=== PATIENT | female | born 1970 | race Caucasian/White ===

== ENCOUNTER 2016-08-27 11:38 | Inpatient (IN) | payer OTHER ==
[~2016-08-27] VITALS: Ht 165.1 cm; Wt 93.4 kg
[2016-08-27 14:10] VITALS: BP 116/77
--- NOTE | 2016-08-27 14:10 | NUR ---
MS RN NOTES DIRECT ADMIT: PATIENT FOR CLINICAL TRIAL PER DR. ERNST. DX: SCHIZOPHRENIA. AAO X 4, ON ROOM AIR, NOT IN ANY DISTRESS. DENIES ANY PAIN AT THIS TIME. NO IV ACCESS. AMBULATORY, NO SKIN ISSUES. REFUSE BODY CHECK AND BELONGINGS CHECK. UNIT ORIENTATION DONE AND USE OF CALL LIGHT. BED LOW LOCKED. SR UP X 2, INSTRUCTED TO CALL FOR ASSISTANCE. ADMITTING ORDERS CARRIED OUT. VS TAKEN, STABLE. WILL CONTINUE TO MONITOR.
[2016-08-27] MEDS ORDERED: IBUPROFEN 200 MG TABLET PO PRN (15:30)
[2016-08-27] MEDS ORDERED: LORAZEPAM 1 MG TABLET FOR INSOMNIA PO PRN (15:30)
[2016-08-27] MEDS ORDERED: MAG HYDROX/AL HYDROX/SIMETH 30 ML UDC PO PRN (15:30)
[2016-08-27] MEDS ORDERED: MAGNESIUM HYDROXIDE 30 ML UDC PO PRN (15:30)
[2016-08-27] MEDS ORDERED: LORAZEPAM 1 MG TABLET FOR AGITATION PO PRN (15:30)
[2016-08-27] MEDS ORDERED: ACETAMINOPHEN ES 500 MG TABLET PO PRN (15:30)
[2016-08-27 16:00] VITALS: BP 116/77
--- NOTE | 2016-08-27 16:33 | NUR ---
MS/RN Belongings Informed by GOLF CART ATTENDANT that patient refusing to have personal belongings checked. Explained to patient that it is hospital policy for all belongings to be recorded upon admission, but still refusing. Further explained that if continues to refuse and anything goes missing, the hospital would not be responsible and therefore would not replace any such item. Patient stated understanding. -patient has two suitcases and jewelry
[2016-08-27 18:00] VITALS: BP 116/77
--- NOTE | 2016-08-27 18:57 | NUR ---
MS RN NOTES PT RESTING IN BED, AAO X 4, ON ROOM AIR, NOT IN ANY DISTRESS. DENIES ANY PAIN AT THIS TIME. NO IV ACCESS. AMBULATORY, NO SKIN ISSUES. CALL LIGHT WITHIN REACH. BED LOW LOCKED. SR UP X 2, INSTRUCTED TO CALL FOR ASSISTANCE. VSS. SAFETY MEASURES IN PLACE. WILL ENDORSE TO NEXT SHIFT FOR FERCHO.
--- NOTE | 2016-08-27 19:20 | NUR ---
RN NOTES RECEIVED PT ASLEEP, BREATHING REGULAR AND UNLABORED, NO SOB, NOT IN DISTRESS TOLERATING ROOM AIR. NO IV ACCESS NOTED. KEPT BED IN THE LOWEST POSITION, LOCKED, SIDE RAILS X2 UP WITH CALL LIGHT WITH IN REACH. KEPT COMFORTABLE AND ATTENDED. WILL CONTINUE TO MONITOR PT.
[2016-08-27 22:00] VITALS: BP 118/72
[2016-08-27] MEDS ORDERED: OLANZAPINE 5 MG TABLET PO SCH (22:00)
[2016-08-27] MEDS: OLANZAPINE 5 MG TABLET PO SCH (22:28)
--- NOTE | 2016-08-27 22:28 | NUR ---
RN NOTES PT AWAKE, ALERT AND ORIENTED X4, DENIES ANY PAIN AND DISCOMFORT AT THIS TIME. DUE MED GIVEN AND TOLERATED WELL. WILL CONTINUE TO MONITOR PT.
--- NOTE | 2016-08-28 06:58 | NUR ---
RN NOTES PT ASLEEP IN BED, NO SOB, NOT IN DISTRESS, TOLERATING ROOM AIR. VITAL SIGNS STABLE, NO EPISODE OF NAUSEA AND VOMITING. PT CALM, QUIET AND COOPERATIVE WITH CARE. NO UNTOWARD REACTION TO MEDICATION NOTED. WILL ENDORSE TO MORNING RN FOR CONTINUITY OF CARE.
--- NOTE | 2016-08-28 07:30 | NUR ---
MS RN AM NOTES PT ASLEEP, AROUSES TO NAME AND TOUCH, AAO X 4, ON ROOM AIR, NOT IN ANY DISTRESS. DENIES ANY PAIN AT THIS TIME. NO IV ACCESS. AMBULATORY, NO SKIN ISSUES. CALL LIGHT WITHIN REACH. BED LOW LOCKED. SR UP X 2, INSTRUCTED TO CALL FOR ASSISTANCE. VSAFETY MEASURES IN PLACE. WILL CONTINUE TO MONITOR.
[2016-08-28 08:00] VITALS: BP 114/76
[2016-08-28] MEDS: ATENOLOL 25 MG TABLET PO SCH (08:09)
[2016-08-28 08:48] VITALS: BP 114/76
--- NOTE | 2016-08-28 09:30 | NUR ---
MS RN NOTES ADMINISTERED DUE MEDS. COOPERATIVE AND CALM.
[2016-08-28 16:00] VITALS: BP 120/77
[2016-08-28 16:46] VITALS: BP 120/77
[2016-08-28 18:00] VITALS: BP 120/77
--- NOTE | 2016-08-28 18:37 | NUR ---
MS RN NOTES PT RESTING IN BED, AAO X 4, ON ROOM AIR, NOT IN ANY DISTRESS. DENIES ANY PAIN AT THIS TIME. NO IV ACCESS. AMBULATORY, NO SKIN ISSUES. CALL LIGHT WITHIN REACH. BED LOW LOCKED. SR UP X 2, INSTRUCTED TO CALL FOR ASSISTANCE. VSS. SAFETY MEASURES IN PLACE. ALL NEEDS MET. WILL ENDORSE TO NEXT SHIFT FOR FERCHO. PT SEEN BY DR. ERNST EARLIER. NO NEW ORDERS.
--- NOTE | 2016-08-28 19:00 | NUR ---
MS CUMMINS OPENING NOTES RECEIVED PATIENT IN BED IN STABLE CONDITION, NO S/S OF DISTRESS, IV SITE INTACT WITH S/S OF INFILTRATION. NO S/S OF DISTRESS NO SOB, NO CHEST PAIN. NO COMPLAINS OF PAIN, SAFE FREE ENVIRONMENT PROVIDED FREE OF CLUTTERS, WILL CONTINUE TO MONITOR, ON LOW BED TO ENSURE SAFETY, CALL LIGHT WITHIN REACH. Addendum: 08/28/16 at 1999 by MIAH ESTRADA RN ADDENDUM: WRONG ENTRY THIS FOR THE DIFFERENT PATIENT
--- NOTE | 2016-08-28 19:00 | NUR ---
MS RN OPENING NOTES RECEIVED PATIENT IN BED IN STABLE CONDITION, HEAD OF BED ELEVATED FOR BETTER LUNG EXPANSION. NO S/S OF DISTRESS NO SOB, NO CHEST PAIN. NO COMPLAINS OF PAIN, SAFE FREE ENVIRONMENT PROVIDED FREE OF CLUTTERS, WILL CONTINUE TO MONITOR, ON LOW BED TO ENSURE SAFETY, CALL LIGHT WITHIN REACH.
[2016-08-28 20:00] VITALS: BP 128/66
[2016-08-28] MEDS: OLANZAPINE 5 MG TABLET PO SCH (21:22)
--- NOTE | 2016-08-29 06:56 | NUR ---
MS RN CLOSING NOTES PATIENT COMFORTABLY IN BED ASLEEP AND EASILY AWAKEN, DUE MEDS WAS GIVEN. PATIENT IN STABLE CONDITION WITH NO SOB NO S/S OF DISTRESS NO NAUSEA AND VOMITING NO HEADACHE NO PAIN, NO COMPLAIN OF CHEST PAIN. NO UNUSUAL BEHAVIOR NOTED NO ADVERSE REACTION OR PSYCH INSTABILITY NOTED. NO EPISODES OF AKATHISIA OR TREMORS NOTED, NO S/S EPS NOTED. NO S/S OF HYPO/HYPERGLYCEMIA NOTED. ALERT AND VERBALLY RESPONSIVE X 4 DENIES PAIN OR DISTRESS, RESPONDS APPROPRIATELY TO VERBAL STIMULI, RESPIRATIONS EVEN UNLABORED BREATH SOUNDS. VS STABLE, APICAL PULSE REGULAR; GOOD SKIN CARE PROVIDED. SAFETY ENVIRONMENT PROVIDED. FREE OF CLUTTERS, NEEDS ATTENDED AND ANTICIPATED, NURSING CARE RENDERED, KEPT CLEAN AND DRY AND COMFORTABLE. CALL LIGHT IN REACH, BED LOWERED AND LOCKED, SR X2 FOR SAFETY AND WILL ENDORSE CONTINUE PLAN OF CARE TO THE NEXT SHIFT
--- NOTE | 2016-08-29 07:15 | NUR ---
MS RN NOTE: RECEIVED PATIENT WHILE RESTING IN BED, A/OX 4. PATIENT BREATHING EVEN AND UNLABORED ON ROOM AIR. NO SOB. NO DISTRESS/DISCOMFORT. PATIENT IS CALM AND COOPERATIVE, NO ABNORMAL BEHAVIOR AT THIS TIME. ALL NEEDS ATTENDED TO, SAFETY MEASURES IN PLACE, WILL CONTINUE TO MONITOR.
[2016-08-29 08:00] VITALS: BP 117/67
--- NOTE | 2016-08-29 08:00 | NUR ---
MS RN NOTE: PATIENT ATE ONLY ABOUT 50% OF BREAKFAST, NO COMPLICATIONS NOTED, WILL CONTINUE TO MONITOR.
[2016-08-29] MEDS: ATENOLOL 25 MG TABLET PO SCH (08:24)
--- NOTE | 2016-08-29 10:00 | NUR ---
MS RN NOTE: PATIENT SLEEPING AT THIS TIME. NO ABNORMAL BEHAVIOR NOTED, WILL CONTINUE TO MONITOR.
--- NOTE | 2016-08-29 13:10 | NUR ---
PATIENT TAKEN TO DR. ERNST'S OFFICE WITH CLINICAL WORKER. PATIENT AMBULATORY, NO COMPLICATIONS NOTED, WILL CONTINUE TO MONITOR UPON RETURN.
--- NOTE | 2016-08-29 14:28 | NUR ---
PATIENT HAS RETURNED BACK FROM DR. ERNST'S OFFICE. NO COMPLICATIONS NOTED, WILL CONTINUE TO MONITOR.
[2016-08-29 16:00] VITALS: BP 129/89
--- NOTE | 2016-08-29 17:50 | NUR ---
MS RN NOTE: PATIENT REQUESTING TO SHOWER, ASSISTED TO SHOWER ROOM, INDEPENDENT WITH CARE. PATIENT REMAINS CALM AND COOPERATIVE. WILL CONTINUE TO MONITOR.
--- NOTE | 2016-08-29 18:43 | NUR ---
MS RN NOTE: PATIENT RESTING IN BED, A/OX 4. BREATHING EVEN AND UNLABORED. NO SOB, NO COMPLICATIONS NOTED. PATIENT CALM, COOPERATIVE, NO ABNORMAL BEHAVIOR NOTED. PT. SLEPT THRU MOST OF DAY. ALL NEEDS ATTENDED TO, SAFETY MEASURES IN PLACE, WILL ENDORSE TO BLOCK CAPTAIN FOR FERCHO.
--- NOTE | 2016-08-29 19:45 | NUR ---
MS RN NOTE: PATIENT RESTING IN BED, NO ACUTE DISTRESS NOTED. BREATHING EVEN AND UNLABORED, NO SOB NOTED. PATIENT CALM AND COOPERATIVE, NO ABNORMAL BEHAVIOR NOTED. BED LOCKED AND IN LOWEST POSITION, CALL LIGHT IN REACH. WILL CONTINUE TO MONITOR.
[2016-08-29 20:18] VITALS: BP 118/75
[2016-08-29] MEDS: OLANZAPINE 5 MG TABLET PO SCH (21:47)
--- NOTE | 2016-08-30 03:00 | NUR ---
MS RN NOTE: PATIENT SLEEPING IN BED, NO ACUTE DISTRESS NOTED. BREATHING EVEN AND UNLABORED, NO SOB NOTED. BED LOCKED AND IN LOWEST POSITION, CALL LIGHT IN REACH. WILL CONTINUE TO MONITOR.
--- NOTE | 2016-08-30 05:34 | NUR ---
MS CUMMINS OPENING NOTES: PATIENT IN BED, AOX4, ON ROOM AIR, BREATHING EVEN AND UNLABORED. BREATH SOUNDS CLEAR TO AUSCULTATION. PATIENT APPEARS CALM, IN NO DISTRESS. DENIES ANY PAIN OR DISCOMFORT. ONLY ASKED FOR CRACKERS. NO IV ACCESS. PROVIDED FOR COMFORT AND SAFETY. WILL CONT TO MONITOR BEHAVIOR. Addendum: 08/31/16 at 0536 by WILLIAM HUERTA RN PLEASE DISREGARD. WRONG TIME OF DOCUMENTATION
--- NOTE | 2016-08-30 06:25 | NUR ---
MS RN NOTE: PATIENT RESTING IN BED, NO ACUTE DISTRESS NOTED. BREATHING EVEN AND UNLABORED, NO SOB NOTED. PATIENT CALM AND COOPERATIVE, NO ABNORMAL BEHAVIOR THROUGHOUT SHIFT. BED LOCKED AND IN LOWEST POSITION, CALL LIGHT IN REACH. WILL ENDORSE TO DAY NURSE TO CONTINUE WITH PLAN OF CARE.
[2016-08-30 08:00] VITALS: BP 142/81
--- NOTE | 2016-08-30 08:00 | NUR ---
MS RN AM NOTES PATIENT RESTING IN BED, A/OX 4. BREATHING EVEN AND UNLABORED. NO SOB, NO COMPLICATIONS NOTED. PATIENT CALM, COOPERATIVE, NO ABNORMAL BEHAVIOR NOTED. PT. SLEPT THRU MOST OF DAY OCCASIONALLY SMOKES OUTSIDE THE BUILDING ACCOMPANIED BY CHANGE MANAGER.DENIES PAIN OR DISTRESS.CALL LIGHT WITHIN REACH.
[2016-08-30] MEDS: ATENOLOL 25 MG TABLET PO SCH (08:47)
[2016-08-30 16:00] VITALS: BP 120/75
[2016-08-30 16:13] VITALS: BP 120/75
--- NOTE | 2016-08-30 19:30 | NUR ---
MS RN OPENING NOTES: PATIENT IN BED, AOX4, ON ROOM AIR, BREATHING EVEN AND UNLABORED. BREATH SOUNDS CLEAR TO AUSCULTATION. PATIENT APPEARS CALM, IN NO DISTRESS. DENIES ANY PAIN OR DISCOMFORT. ONLY ASKED FOR CRACKERS. NO IV ACCESS. PROVIDED FOR COMFORT AND SAFETY. WILL CONT TO MONITOR BEHAVIOR.
--- NOTE | 2016-08-30 19:47 | NUR ---
MS/RN CLOSING NOTES PT. IS LYING IN BED, A&OX4. PT. BREATHES EVENLY UNLABORED, NO SIGNS OF DISTRESS. PT. AMBULATES WITHOUT ASSISTANCE. PT. IS CONTINENT. CALL LIGHT IS WITHIN REACH, AND NEEDS ARE ATTENDED TO. PT. HAD A CIGARETTE AND MATCHES TAKEN AWAY FROM HER ROOM AT 1200.
[2016-08-30 20:14] VITALS: BP 129/80
[2016-08-30] MEDS: OLANZAPINE 5 MG TABLET PO SCH (21:55)
[2016-08-30 22:00] VITALS: BP 129/80
--- NOTE | 2016-08-31 00:30 | NUR ---
RN NOTES: PATIENT ASLEEP AT THIS TIME, BUT EASILY AWAKENED BY NAME BEING CALLED. CALM AND IN NO DISTRESS. WILL CONT TO MONITOR.
--- NOTE | 2016-08-31 07:30 | NUR ---
MS RN CLOSING NOTES: PATIENT IN BED, ASLEEP AT THIS TIME. DUE MEDS GIVEN. PROVIDED FOR COMFORT AND SAFETY. NO ACUTE CHANGE IN CONDITION NOTED THROUGH SHIFT. ENDORSED TO AM RN FOR FERCHO.
[2016-08-31 08:00] VITALS: BP 126/81
[2016-08-31] MEDS: ATENOLOL 25 MG TABLET PO SCH (08:54)
--- NOTE | 2016-08-31 09:30 | NUR ---
MS RN NOTES ADMINISTERED DUE MEDS.
[2016-08-31 16:00] VITALS: BP 123/79
[2016-08-31 18:00] VITALS: BP 123/79
--- NOTE | 2016-08-31 19:20 | NUR ---
MS RN OPENING NOTES: PATIENT IN BED, ASLEEP AT THIS TIME, BUT ABLE TO BE AWAKENED BY NAME BEING CALLED. AOX4, APPEARS WITHDRAWN AT THIS TIME. ABLE TO MAKE NEEDS KNOWN. APPEARS CALM AND IN NO DISTRESS. BREATHING EVEN AND UNLABORED. GOES BACK TO SLEEP AFTER TALKING TO HER. PROVIDED FOR COMFORT AND SAFETY. WILL CONT TO MONITOR.
[2016-08-31 20:08] VITALS: BP 123/82
[2016-08-31 22:00] VITALS: BP 123/82
[2016-08-31] MEDS: OLANZAPINE 5 MG TABLET PO SCH (22:23)
--- NOTE | 2016-08-31 22:30 | NUR ---
RN NOTES: PATIENT AWAKE, BUT STILL APPEARS WITHDRAWN. IN NO DISTRESS. DENIES PAIN OR DISCOMFORT. OFFERED LIGHT SNACK. WILL CONT TO MONITOR.
--- NOTE | 2016-09-01 07:01 | NUR ---
MS RN CLOSING NOTES: PATIENT IN BED, ASLEEP BUT EASILY AWAKENED BY NAME BEING CALLED. BREATHING EVEN AND UNLABORED. APPEARS CALM AND IN NO APPARENT DISTRESS. PROVIDED FOR COMFORT AND SAFETY. WILL CONT TO MONITOR.
[2016-09-01 08:00] VITALS: BP 125/80
[2016-09-01] MEDS: ATENOLOL 25 MG TABLET PO SCH (08:35)
--- NOTE | 2016-09-01 09:30 | NUR ---
MS RN NOTES ADMINISTERED DUE MEDS.
[2016-09-01 16:00] VITALS: BP 130/76
[2016-09-01 18:00] VITALS: BP 130/76
--- NOTE | 2016-09-01 18:26 | NUR ---
MS RN NOTES PT RESTING IN BED, AAO X 4, ON ROOM AIR, NOT IN ANY DISTRESS. DENIES ANY PAIN AT THIS TIME. NO IV ACCESS. AMBULATORY, NO SKIN ISSUES. CALL LIGHT WITHIN REACH. BED LOW LOCKED. SR UP X 2, INSTRUCTED TO CALL FOR ASSISTANCE. VSS. SAFETY MEASURES IN PLACE. ALL NEEDS MET. WILL ENDORSE TO NEXT SHIFT FOR FERCHO.
--- NOTE | 2016-09-01 19:50 | NUR ---
PATIENT RESTING COMFORTABLY IN BED, ALERT AND ORIENTED X 4, NO DISTRESS, NO SOB, ON ROOM AIR, ABLE TO VERBALIZE NEEDS, KEPT SAFE AND COMFORTABLE, CALL LIGHT WITHIN REACH.
[2016-09-01 20:00] VITALS: BP 110/80
--- NOTE | 2016-09-02 01:35 | NUR ---
PATIENT ASLEEP, NO COMPLAIN OF ANXIETY, NO TREMORS, NO HALLUCINATIONS. WILL CONTINUE TO MONITOR.
--- NOTE | 2016-09-02 06:30 | NUR ---
PATIENT RESTING COMFORTABLY IN BED, NO DISTRESS, ABLE TO SLEEP THROUGH THE NIGHT, NO BEHAVIOR DISTURBANCE, NO TREMORS, NO AKATHISIA NOTED. COMPLIANT WITH CARE. KEPT SAFE AND COMFORTABLE, CALL LIGHT WITHIN REACH
--- NOTE | 2016-09-02 07:58 | NUR ---
MS/RN Patient received Patient received from rn night, no needs at this time. Will continue to monitor.
[2016-09-02 08:00] VITALS: BP 121/82
[2016-09-02] MEDS: ATENOLOL 25 MG TABLET PO SCH (08:21)
--- NOTE | 2016-09-02 08:55 | NUR ---
MS/train gateman Morning blood pressure medication administered as ordered. BP - 121/82 HR - 87
--- NOTE | 2016-09-02 10:45 | NUR ---
MS/RN Activities Patient of floor at this time, taken to GPS for activities.
--- NOTE | 2016-09-02 12:35 | NUR ---
MS/RN Back in room Patiwent back in room from [facility], eating lunch.
[2016-09-02 16:00] VITALS: BP 142/89
--- NOTE | 2016-09-02 18:00 | NUR ---
MS/RN End note Seen by Dr Mcadams - no new orders, plan is to continue with current clinical study orders. Has remained calm and cooperative throughout the shift. No behavior concerns. Will endorse to date night caregiver.
--- NOTE | 2016-09-02 19:30 | NUR ---
MS RN NOTE PATIENT STABLE. FOLLOWING PROTOCOL STUDY ORDERS. WILL CONTINUE TO MONITOR.
[2016-09-02 20:00] VITALS: BP 139/88
[2016-09-02 22:00] VITALS: BP 139/88
--- NOTE | 2016-09-03 06:39 | NUR ---
MS RN NOTE PATIENT STABLE. WILL ENDORSE TO DAY SHIFT FOR FERCHO.
--- NOTE | 2016-09-03 07:30 | NUR ---
MS/RN Patient received Patient received from scene shifter. No needs at this time. Updated as to plan regarding starting trial medications and blood test, patient in agreement with all of the above.
[2016-09-03 07:33] VITALS: BP 113/84
[2016-09-03 08:09] VITALS: BP 113/84
[2016-09-03] MEDS: ATENOLOL 25 MG TABLET PO SCH (08:19)
--- NOTE | 2016-09-03 08:24 | NUR ---
MS/water maintenance supervisor Morning blood pressure medication administered as ordered. - BP 113/84
--- NOTE | 2016-09-03 12:41 | NUR ---
MS/RN Behavior Patient has remained calm and cooperative this morning, no behavior concerns. Admits to having some auditory hallucinations.
[2016-09-03 15:54] VITALS: BP 136/86
[2016-09-03 16:18] VITALS: BP 136/86
--- NOTE | 2016-09-03 18:28 | NUR ---
MS/RN End note Patient noted to be pacing in hallway and having auditory hullucinations, talking loudly to herself. Has not required any prn medications. Will continue to monitor.
[2016-09-03 19:00] VITALS: BP 143/98
--- NOTE | 2016-09-03 19:35 | NUR ---
MS RN NOTES RECEIVED ON BED AWAKE,ALERT,ORIENTED X4,AMBULATORY NO IV ACCESS.CALM AND QUIET,ABLE TO MAKE NEEDS KNOWN.CALL LIGHT IN REACH,NEEDS ANTICIPATED.
[2016-09-03 20:00] VITALS: BP 143/78
--- NOTE | 2016-09-03 20:00 | NUR ---
MS RN NOTES WENT DOWN TO SMOKE ACCOMPANIED BY PETER GA.REMAINS CALM
--- NOTE | 2016-09-04 07:27 | NUR ---
MS RN NOTES SLEPT WELL AT NOC.NO AGITATION NOTED.WILL CONTINUE TO MONITOR BEHAVIOR.REPORT GIVEN TO WALT FOR FERCHO.
--- NOTE | 2016-09-04 07:45 | NUR ---
RN NOTES RECEIVED PT IN BED. SLEEPING BUT EASY TO AROUSE. IN NO APPARENT DISTRESS. RESPIRATIONS EVEN AND UNLABORED. NO BEHAVIOR DISPLAYED AT THIS TIME. PT NPO UNTIL BLOOD DRAWN ( PER PROTOCOL). WILL CONTINUE TO MONITOR. PT'S CALL LIGHT WITHIN REACH
[2016-09-04 08:00] VITALS: BP 108/70
[2016-09-04 08:09] VITALS: BP 108/70
--- NOTE | 2016-09-04 08:20 | NUR ---
RN NOTES PT WENT TO DR ERNST'S CLINIC,. ACCOMPANIED BY 'S STAFF MEMBER FOR ORDERED LAB DRAW. WILL AWAIT RETURN
--- NOTE | 2016-09-04 11:30 | NUR ---
RN NOTES PT BACK FROM DR ERNST'S CLINIC- IN NO APPARENT DISTRESS. WILL CONTINUE TO MONITOR
[2016-09-04] MEDS: ATENOLOL 25 MG TABLET PO SCH (11:54)
[2016-09-04] MEDS ORDERED: LORAZEPAM 1 MG TABLET FOR AGITATION PO PRN (14:00)
[2016-09-04] MEDS ORDERED: LORAZEPAM 1 MG TABLET FOR INSOMNIA PO PRN (14:00)
[2016-09-04 17:00] VITALS: BP 112/66
--- NOTE | 2016-09-04 18:01 | NUR ---
RN NOTES PT IN BED. AWAKE, ALERT, ORIENTED X 3. IN NO APPARENT DISTRESS. PT WITH NO OBSERVED BEHAVIOR THIS SHIFT. WENT FOR SMOKE BREAKS WITH STAFF MEMBER X 3 TOTAL FOR THIS SHIFT. NO COMPLAINTS OF PAIN OR DISCOMFORT. WILL ENDORSE TO ONCOMING SHIFT
--- NOTE | 2016-09-04 19:25 | NUR ---
MS RN NOTES RECEIVED PT IN BED, A/0X4. ABLE TO VERBALIZE NEEDS. NO DISTRESS, NO SOB NOTED. RESPIRATION IS EVEN AND UNLABORED. ON REGULAR DIET LUKASZ WELL. PT IS AMBULATORY. NO C/O PAIN OR DISCOMFORT AT THIS TIME. ALL NEEDS ATTENDED AND MET. KEPT COMFORTABLE. CALL LIGHT WITHIN REACH. WILL CONT TO MONITOR.
[2016-09-04 20:00] VITALS: BP 111/71
--- NOTE | 2016-09-04 20:00 | NUR ---
MS RN NOTES PT WENT OUTSIDE TO SMOKE, ACCOMPANIED BY PETER FUNK. PT STABLE AT THIS TIME.
--- NOTE | 2016-09-04 20:30 | NUR ---
PT CAME BACK FROM OUTSIDE , ACCOMPANIED BY PETER FUNK. PT IS STABLE AT THIS TIME. CONSENT FOR SMOKING INSIDE THE PT'S CHART.
[2016-09-04 22:00] VITALS: BP 111/71
--- NOTE | 2016-09-05 01:30 | NUR ---
MS RN NOTES PT ASLEEP AT THIS TIME, AROUSES EASILY . NO DISTRESS, NO SOB NOTED. CALL LIGHT WITHIN REACH. WILL CONT TO MONITOR.
--- NOTE | 2016-09-05 06:44 | NUR ---
MS RN NOTES PT RESTING AT THIS TIME. AROUSES EASILY. NO ACUTE DISTRESS, NO SOB NOTED AT THIS TIME. RESPIRATION IS EVEN AND UNLABORED. NO C/O PAIN OR DISCOMFORT AT THIS TIME. ALL NEEDS ATTENDED AND MET . KEPT COMFORTABLE. CALL LIGHT WITHIN REACH. WILL ENDORSE TO NEXT SHIFT FOR FERCHO.
--- NOTE | 2016-09-05 07:28 | NUR ---
MS CUMMINS NOTES # OF HOURS : 7 Addendum: 09/06/16 at 0754 by THALIA HUYNH RN # HOURS OF SLEEP : 7
--- NOTE | 2016-09-05 07:30 | NUR ---
MS/RN Patient received Patient received from night club manager. No needs at this time, call light within reach, will continue to ensure safety.
[2016-09-05 08:00] VITALS: BP 121/76
[2016-09-05] MEDS: INVEST MED MK-8189 MISC 1 TAB EA PO SCH (08:02)
[2016-09-05] MEDS: INVEST MED MK-8189 MISC 1 CAP EA PO SCH (08:02)
[2016-09-05] MEDS: ATENOLOL 25 MG TABLET PO SCH (08:02)
--- NOTE | 2016-09-05 08:06 | NUR ---
MS/RN Medications Investigational medication administered as ordered along with atenlol.
--- NOTE | 2016-09-05 10:30 | NUR ---
MS CUMMINS NOTES PT WENT OUTSIDE TO SMOKE, ACCOMPANIED BY PETER HAUSER. PT STABLE AT THIS TIME. Addendum: 09/06/16 at 0555 by THALIA HUYNH RN INCORRECT TIME DOCUMENTED
--- NOTE | 2016-09-05 10:57 | NUR ---
MS/predictive maintenance technician Patient refused skin assessment.
[2016-09-05 16:00] VITALS: BP 142/80
--- NOTE | 2016-09-05 18:11 | NUR ---
MS/RN End note Patient continues to be having auditory and visual hallucinations, remains with very little social interaction although cooperative with treatment. Call light within reach, will continue to ensure safety and endorse to trade embalmer.
--- NOTE | 2016-09-05 19:20 | NUR ---
MS RN NOTES RECEIVED PT SITTING UP IN BED, A/0X4. ABLE TO VERBALIZE NEEDS. NO DISTRESS, NO SOB NOTED. RESPIRATION IS EVEN AND UNLABORED. ON REGULAR DIET LUKASZ WELL. PT IS AMBULATORY. NO C/O PAIN OR DISCOMFORT AT THIS TIME. ALL NEEDS ATTENDED AND MET. KEPT COMFORTABLE. CALL LIGHT WITHIN REACH. WILL CONT TO MONITOR.
[2016-09-05 20:00] VITALS: BP 127/84
[2016-09-05 22:00] VITALS: BP 127/84
--- NOTE | 2016-09-05 22:30 | NUR ---
MS RN NOTES PT WENT OUTSIDE TO SMOKE, ACCOMPANIED BY CONTINUOUS IMPROVEMENT BLACK BELT IMMACULATE. PT STABLE AT THIS TIME.
--- NOTE | 2016-09-05 22:35 | NUR ---
PT CAME BACK FROM OUTSIDE , ACCOMPANIED BY ANALISA, PETER. PT IS STABLE AT THIS TIME. CONSENT FOR SMOKING INSIDE THE PT'S CHART.
--- NOTE | 2016-09-06 07:44 | NUR ---
MS RN NOTES PT RESTING AT THIS TIME, AROUSES EASILY. A/0X4. ABLE TO VERBALIZE NEEDS. NO DISTRESS, NO SOB NOTED. RESPIRATION IS EVEN AND UNLABORED. ON REGULAR DIET LUKASZ WELL. PT IS AMBULATORY. NO C/O PAIN OR DISCOMFORT AT THIS TIME. ALL NEEDS ATTENDED AND MET. KEPT COMFORTABLE. CALL LIGHT WITHIN REACH. WILL ENDORSE TO NEXT SHIFT FOR FERCHO.
--- NOTE | 2016-09-06 07:48 | NUR ---
MS Henry Gee NOTES HOURS OF SLEEP : 5
[2016-09-06 08:00] VITALS: BP 122/92
--- NOTE | 2016-09-06 08:00 | NUR ---
MS/RN Patient received Patient received from awake overnight counselor. No needs at this time, call light within reach, will continue to ensure safety.
[2016-09-06] MEDS: ATENOLOL 25 MG TABLET PO SCH (08:29)
[2016-09-06] MEDS: INVEST MED MK-8189 MISC 1 CAP EA PO SCH (08:30)
[2016-09-06] MEDS: INVEST MED MK-8189 MISC 1 TAB EA PO SCH (08:30)
--- NOTE | 2016-09-06 09:15 | NUR ---
MS/RN Medications Blood pressure and investigational medications administered as ordered.
[2016-09-06 16:00] VITALS: BP 112/79
--- NOTE | 2016-09-06 18:12 | NUR ---
MS/RN End note No problems throughout shift, has been cooperative with plan of care. All investigational medications administered as ordered. Will endorse to mine shifter.
--- NOTE | 2016-09-06 19:30 | NUR ---
MS RN OPENING NOTES: PATIENT SITTING ON BED, AOX4, ON ROOM AIR, BREATHING EVEN AND UNLABORED. APPEARS CALM AND IN NO DISTRESS. ABLE TO MAKE NEEDS KNOWN. PATIENT ONLY ASKING FOR BROADBAND ENGINEER TO ACCOMPANY HER FOR SMOKING BREAK. REASSURED PATIENT. PROVIDED FOR COMFORT AND SAFETY. WILL CONT TO MONITOR.
[2016-09-06 20:00] VITALS: BP 122/75
[2016-09-06 22:00] VITALS: BP 122/75
--- NOTE | 2016-09-07 07:04 | NUR ---
MS RN CLOSING NOTES: PATIENT IN BED, ASLEEP BUT EASILY AWAKENED BY NAME BEING CALLED. ON ROOM AIR, BREATHING EVEN AND UNLABORED. NO ACUTE CHANGE IN CONDITION AND BEHAVIOR NOTED THROUGH SHIFT, WAS CALM AND IN NO DISTRESS. WAS ABLE TO HAVE 8 HOURS OF SLEEP. PROVIDED FOR COMFORT AND SAFETY. WILL ENDORSE TO AM RN FOR FERCHO.
--- NOTE | 2016-09-07 07:10 | NUR ---
MS RN NOTES RECEIVED PATIENT IN BED SLEEPING, AROUSES EASILY. BREATHING EVEN AND NON LABORED. CALL LIGHT WITHIN REACH. PATIENT IN ON CLINICAL TRIAL STUDY UNDER DR. ERNST. WILL CONT TO MONITOR.
[2016-09-07 08:00] VITALS: BP 132/91
[2016-09-07] MEDS: ATENOLOL 25 MG TABLET PO SCH (08:22)
[2016-09-07] MEDS: INVEST MED MK-8189 MISC 2 CAP EA PO SCH (08:23)
[2016-09-07] MEDS: INVEST MED MK-8189 MISC 2 TAB EA PO SCH (08:23)
[2016-09-07 16:00] VITALS: BP 112/90
[2016-09-07 16:15] VITALS: BP 112/90
--- NOTE | 2016-09-07 18:33 | NUR ---
MS RN CLOSING NOTES PATIENT IN BED, NOT IN DISTRESS. V/S REMAINS STABLE. PATIENT IS AMBULATORY, APPEAR CALM AND RELAXED. NO EPISODE OF AGITATION BEHAVIOR DURING THE SHIFT. ON CLINICAL TRIAL STUDY. CALL LIGHT WITHIN REACH. WILL ENDORSE TO UROLOGY SURGEON RN FOR CONTINUITY OF CARE.
--- NOTE | 2016-09-07 19:56 | NUR ---
MS RN INITIAL NOTES: RECEIVED REPORT FROM AGUEDA CUMMINS. PT A/O X3, AMBULATORY, DENIES ANY PAIN OR DISCOMFORT AT THIS TIME, ON ROOM AIR RESPIRATION EVEN AND UNLABORED. NO IV PER MD. PT ON CLINICAL TRIAL, OKAY TO SMOKE, SMOKING CONSENT ATTACHED TO CHART. SAFETY PRECAUTIONS FOR FALL INITIATED CALL LIGHT IN REACH, WILL CONTINUE TO MONITOR
[2016-09-07 20:00] VITALS: BP 125/78
--- NOTE | 2016-09-07 20:30 | NUR ---
RN NOTES: PT REQUESTED TO GO DOWN TO SMOKE, SMOKING CONSENT ATTACHED TO CHART, EDUCATE PT REGARDING RISK OF SMOKING, ADVICE TO SMOKING CESSATION, WENT DOWN ASSISTED BY PETER ANDRADE
--- NOTE | 2016-09-07 21:15 | NUR ---
ms rn notes: pt stated she has no plan of hurting herself, pt seems pleasant, however really make sure that she can smoke, directional, and have good appetite
--- NOTE | 2016-09-08 07:05 | NUR ---
ms rn closing notes: pt on bed, awake, remains a/o x3, no sob noted, denies any plan of hurting herself, remains calm and cooperative. hours of sleep is 5hrs. vs remains stable, needs attended. safety precautions for fall remains engaged. call light in reach. will endorse to day rn for aimee.
--- NOTE | 2016-09-08 07:10 | NUR ---
MS RN OPENING RECEIVED PATIENT A/OX4 DENIES PAIN, SOB DIFFICULTY BREATHING. PATIENT APPEARS COMFORTABLE AND STATES NO NEEDS. RESPIRATIONS EQUAL AND UNLABORED. CALL LIGHT IN REACH, BED LOWERED AND LOCKED, RAILS UPX2 FOR SAFETY AND WILL ROUND Q2H OR LESS PER NEEDS
[2016-09-08 08:00] VITALS: BP 129/77
[2016-09-08] MEDS: INVEST MED MK-8189 MISC 2 CAP EA PO SCH (09:06)
[2016-09-08] MEDS: INVEST MED MK-8189 MISC 2 TAB EA PO SCH (09:06)
[2016-09-08] MEDS: ATENOLOL 25 MG TABLET PO SCH (09:08)
[2016-09-08 16:00] VITALS: BP 114/72
[2016-09-08 20:00] VITALS: BP 127/83
[2016-09-08 20:09] VITALS: BP 127/83
--- NOTE | 2016-09-09 07:10 | NUR ---
MS RN CLOSING PT STABLE NO COMPLICATIONS. PLEASANT THROUGHOUT DAY AND NIGHT. PATIENT ABLE TO SLEEP 8 HOURS. ALL NEEDS MET AND CALL LIGHT IN REACH, BED LOWERED AND LOCKED, RAILS UPX3 FOR SAFETY. CARE ENDORSED TO RN AT THIS TIME
[2016-09-09 08:00] VITALS: BP 125/72
[2016-09-09] MEDS: INVEST MED MK-8189 MISC 2 CAP EA PO SCH (08:47)
[2016-09-09] MEDS: ATENOLOL 25 MG TABLET PO SCH (08:48)
[2016-09-09] MEDS: INVEST MED MK-8189 MISC 2 TAB EA PO SCH (08:48)
--- NOTE | 2016-09-09 09:10 | NUR ---
MS/RN Medications Morning medications administered as ordered.
[2016-09-09 16:00] VITALS: BP 129/70
--- NOTE | 2016-09-09 18:45 | NUR ---
MS/RN End note No changes in plan of care. Has been calm and cooperative today, no behavior concerns. Will endorse to shift coordinator.
--- NOTE | 2016-09-09 19:30 | NUR ---
MSRN FULLY AWAKE, WANTED TO GO OUT AND SMOKE. WILLING TO WAIT. BEHAVIOR APPROPRIATE, COOPERATIVE. NO NEEDS AT THIS TIME, PATIENTLY WAITING.
[2016-09-09 20:00] VITALS: BP 125/83
--- NOTE | 2016-09-09 20:45 | NUR ---
MSRN WENT DOWN FOR SMOKE ACCPD BY REHAB MANAGER. SAFETY PRECAUTIONS EMPHASIZED, APPEARS TO UNDERSTAND. TO CONTINUE.
--- NOTE | 2016-09-09 21:30 | NUR ---
FER GOES IN AND OUT OF HER ROOM, BECOMING ANXIOUS, REQUESTED MEDICINE FOR SLEEP. MEDICATION LIST REVIEWED WITH PATIENT, PREFERS TO TAKE ATIVAN FOR INCREASING ANXIETY. 1MG PO ADMINISTERED ORDERED.
--- NOTE | 2016-09-09 22:30 | NUR ---
MSRN WENT DOWN FOR SMOKE WITH MATH TUTOR, STATED WILL BE LAST.
--- NOTE | 2016-09-09 22:58 | NUR ---
MSRN TRYING TO SLEEP, PROVIDED QUIET ENVIRONMENT. CLOSELY WATCHED.
--- NOTE | 2016-09-09 23:59 | NUR ---
FER SLEEPING AT THIS TIME, CLOSELY WATCHED
--- NOTE | 2016-09-10 06:52 | NUR ---
MSRN TOTAL HRS SLEEP 7 HOURS
[2016-09-10 08:00] VITALS: BP 130/93
[2016-09-10] MEDS: INVEST MED MK-8189 MISC 3 TAB EA PO SCH (08:37)
[2016-09-10] MEDS: INVEST MED MK-8189 MISC 3 CAP EA PO SCH (08:37)
[2016-09-10] MEDS: ATENOLOL 25 MG TABLET PO SCH (08:38)
[2016-09-10 16:00] VITALS: BP 116/72
--- NOTE | 2016-09-10 18:24 | NUR ---
MS RN NOTES PATIENT IN BED RESTING NO SOB OR ACUTE DISTRESS NOTED. PATIENT COMPLAINT WITH MEDICATIONS. HOURS OF SLEEP NOTED IS 4. PATIENT REQUESTING FOR SMOKE BREAKS OFTEN. WILL ENDORSE CARE TO PM RN.
--- NOTE | 2016-09-10 19:40 | NUR ---
MSRN SEEN BY DOCTOR ERNST, NO NEW ORDERS. PATIENT HAS BEEN COOPERATIVE, CALM. LESS AUDITORY HALLUCINATION. ALL NEEDS MADE, CLOSELY WATCHED.
[2016-09-10 20:00] VITALS: BP 125/77
--- NOTE | 2016-09-10 20:45 | NUR ---
MSRN WENT DOWN FOR SMOKE ASSISTED BY AIR BOATSWAIN. SAFETY PRECAUTIONS EMPHASIZED, APPEARS TO UNDERSTND.
--- NOTE | 2016-09-10 22:40 | NUR ---
MSRN SLEEPING OF THIS TIME.
--- NOTE | 2016-09-11 02:59 | NUR ---
MSRN SLEEPING STILL CONTINUED.
--- NOTE | 2016-09-11 06:18 | NUR ---
msrn total hrs sleep 7hrs
--- NOTE | 2016-09-11 07:30 | NUR ---
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 No needs at this time, will continue to monitor and ensure safety.
[2016-09-11 08:00] VITALS: BP 128/84
--- NOTE | 2016-09-11 08:50 | NUR ---
MS/RN Interview Patient currently being interviewed by Dr Powell staff about medication, side effects etc.
[2016-09-11] MEDS: INVEST MED MK-8189 MISC 3 CAP EA PO SCH (08:59)
[2016-09-11] MEDS: INVEST MED MK-8189 MISC 3 TAB EA PO SCH (08:59)
[2016-09-11] MEDS: ATENOLOL 25 MG TABLET PO SCH (09:00)
--- NOTE | 2016-09-11 09:00 | NUR ---
MS/RN Medications Investigational medications administered as ordered.
--- NOTE | 2016-09-11 12:39 | NUR ---
MS/RN Behavior No behavioral concerns, remains calm and cooperative. Will continue to monitor.
[2016-09-11] MEDS ORDERED: LORAZEPAM 1 MG TABLET FOR INSOMNIA PO PRN (14:00)
[2016-09-11] MEDS ORDERED: LORAZEPAM 1 MG TABLET FOR AGITATION PO PRN (14:00)
[2016-09-11 16:00] VITALS: BP 115/80
--- NOTE | 2016-09-11 18:30 | NUR ---
MS/RN End note No changes in patient's condition at this time, remains calm and cooperative. Admits to some visual and auditory hallucinations. Will endorse to shift supervisor rn.
--- NOTE | 2016-09-11 19:50 | NUR ---
MS RN NOTE: PATIENT RESTING IN BED, NO ACUTE DISTRESS NOTED. BREATHING EVEN AND UNLABORED, NO SOB NOTED. PATIENT CALM AND COOPERATIVE. BED LOCKED AND IN LOWEST POSITION, CALL LIGHT IN REACH. WILL CONTINUE TO MONITOR.
[2016-09-11 20:00] VITALS: BP 133/87
--- NOTE | 2016-09-12 00:30 | NUR ---
MS RN NOTE: PATIENT ANXIOUS AND WANTING ATIVAN TO HELP SLEEP. ATIVAN 1MG ORAL GIVEN PER MD ORDER. WILL CONTINUE TO MONITOR.
--- NOTE | 2016-09-12 06:00 | NUR ---
MS RN NOTE: PATIENT RESTING IN BED, NO ACUTE DISTRESS NOTED. BREATHING EVEN AND UNLABORED, NO SOB NOTED. PATIENT CALM AND COOPERATIVE. PATIENT SLEPT 6 HOURS BED LOCKED AND IN LOWEST POSITION, CALL LIGHT IN REACH. WILL ENDORSE TO DAY NURSE TO CONTINUE WITH PLAN OF CARE.
--- NOTE | 2016-09-12 07:30 | NUR ---
MS/RN Patient received Patient received from night stocker. No needs at this time, remains calm and cooperative with plan of care. Will continue to monitor and ensure safety.
[2016-09-12 08:00] VITALS: BP 136/77
[2016-09-12] MEDS: INVEST MED MK-8189 MISC 3 TAB EA PO SCH (08:03)
[2016-09-12] MEDS: INVEST MED MK-8189 MISC 3 CAP EA PO SCH (08:03)
[2016-09-12] MEDS: ATENOLOL 25 MG TABLET PO SCH (08:04)
--- NOTE | 2016-09-12 09:05 | NUR ---
MS/RN Medications Investigational medications (3 pills/ 3 capsules) administered as ordered.
[2016-09-12 16:14] VITALS: BP 125/76
--- NOTE | 2016-09-12 18:24 | NUR ---
MS/RN End note Patient has at times today been seen pacing in hallways, but remains cooperative. Admits to auditory and visual hallucinations, verbally responding to them. Will continue to monitor and ensure safety. Will endorse to cemetery vault installer.
[2016-09-12 20:00] VITALS: BP 128/83
--- NOTE | 2016-09-12 20:00 | NUR ---
PATIENT IN BED, ALERT AND ORIENTED X4, CALM, NO RESPIRATORY DISTRESS, NO COMPLAIN OF PAIN. DENIES HALLUCINATIONS AT THIS TIME. KEPT SAFE AND COMFORTABLE, CALL LIGHT WITHIN REACH.
--- NOTE | 2016-09-12 22:13 | NUR ---
PATIENT HAS GOOD APPETITE, REQUESTING SNACKS AND JUICES, CALM, NEEDS PROVIDED.
--- NOTE | 2016-09-13 06:36 | NUR ---
PATIENT IS RESTING COMFORTABLY, NO SOB, DENIES ANY PAIN AT THIS TIME, SLEPT 8 HOURS DURING SHIFT, NO BEHAVIOR CHANGE, REMAINED CALM AND COOPERATIVE. KEPT SAFE AND COMFORTABLE, CALL LIGHT WITHIN REACH.
--- NOTE | 2016-09-13 07:45 | NUR ---
RN NOTES PATIENT IN BED, ALERT AND ORIENTED X4, CALM, NO RESPIRATORY DISTRESS, NO COMPLAIN OF PAIN. DENIES HALLUCINATIONS AT THIS TIME. KEPT SAFE AND COMFORTABLE, CALL LIGHT WITHIN REACH WILL CONTINUE TO MONITOR.
[2016-09-13 08:00] VITALS: BP 119/76
[2016-09-13] MEDS: INVEST MED MK-8189 MISC 3 TAB EA PO SCH (08:51)
[2016-09-13] MEDS: INVEST MED MK-8189 MISC 3 CAP EA PO SCH (08:51)
[2016-09-13] MEDS: ATENOLOL 25 MG TABLET PO SCH (08:53)
[2016-09-13 16:04] VITALS: BP 126/78
--- NOTE | 2016-09-13 17:00 | NUR ---
MS RN NOTES RECEIVED REPORT FROM NIGHT NURSE. PATIENT IS A/O X4. PATIENT WAS RESTING IN BED IN LOW POSITION, WITH SIDE RAILS UP X2, CALL LIGHT WITHIN REACH. PATIENT HAS NO SIGNS OF DISTRESS OR SOB. WILL CONTINUE TO MONITOR AND ASESSESS PATIENT.
--- NOTE | 2016-09-13 18:59 | NUR ---
RN NOTES AMBULATING IN HALLS FREQUENTLY; REQUESTING EXTRA MEAL; DIETARY DEPT. NOTIFIED; NO ACUTE DISTRESS; WILL ENDORSE TO PM NURSE.
[2016-09-13 20:00] VITALS: BP 124/76
--- NOTE | 2016-09-13 20:16 | NUR ---
ms rn notes: pt c/o terrible head ache requesting for tylenol, prn tylenol 1000mg tAb po administered to the pt at this time, will continue to monitor and reassess
--- NOTE | 2016-09-13 21:10 | NUR ---
MS RN NOTES: PT CALM AND COOPERATIVE, PT IS MED COMPLIANT, DENIES ANY PLAN OF HURTING HERSELF, BUT IS PARANOID AND ADMIT TO HAVING AUDITORY HALLUCINATION.
--- NOTE | 2016-09-14 07:29 | NUR ---
MS RN NOTES: PT SLEPT FOR 8HRS
--- NOTE | 2016-09-14 07:30 | NUR ---
MS RN AM NOTES PT ASLEEP, AROUSES TO NAME AND TOUCH, AAO X 4, ON ROOM AIR, NOT IN ANY DISTRESS. DENIES ANY PAIN AT THIS TIME. NO IV ACCESS. AMBULATORY, NO SKIN ISSUES. CALL LIGHT WITHIN REACH. BED LOW LOCKED. SR UP X 2, INSTRUCTED TO CALL FOR ASSISTANCE. SAFETY MEASURES IN PLACE. WILL CONTINUE TO MONITOR.
--- NOTE | 2016-09-14 07:30 | NUR ---
Gave report to morning nurse. Patient is resting comfortably in bed. No s/s of distress or pain. Bed in low position, side rails up x2, and call light within reach.
[2016-09-14 08:00] VITALS: BP 118/77
[2016-09-14] MEDS: INVEST MED MK-8189 MISC 3 TAB EA PO SCH (08:29)
[2016-09-14] MEDS: ATENOLOL 25 MG PO SCH (08:30)
[2016-09-14] MEDS: INVEST MED MK-8189 MISC 3 CAP EA PO SCH (08:30)
--- NOTE | 2016-09-14 09:00 | NUR ---
MS RN NOTES ADMINISTERED INVESTIGATIONAL MEDS.
[2016-09-14 16:00] VITALS: BP 131/82
[2016-09-14 18:00] VITALS: BP 131/82
--- NOTE | 2016-09-14 19:55 | NUR ---
MS RN INITIAL NOTES: PT AMBULATING AROUND THE HALLWAY, NO SOB NOTED, PLEASANT, A/O X4, DENIES ANY CHEST PAIN OR DISCOMFORT AT THIS TIME, NO IV ACCESS PER MD. TOOK A SHOWER TODAY. WEARING HOSPITAL GOWN AND OWN CLOTHING INSIDE PT STATED SHE FEELS COLD. WILL CONTINUE TO MONITOR
[2016-09-14 20:00] VITALS: BP 139/76
--- NOTE | 2016-09-14 20:15 | NUR ---
MS RN NOTES: PT REQUESTED TO GO DOWN TO SMOKE, INFANT TEACHER BROUGHT PT TO SMOKING AREA,
--- NOTE | 2016-09-14 20:25 | NUR ---
MS RN NOTES: PT CAME BACK FROM SMOKING,
--- NOTE | 2016-09-15 01:56 | NUR ---
MS RN NOTES: PT SLEEPING AT THIS TIME
--- NOTE | 2016-09-15 06:47 | NUR ---
MS RN CLOSING NOTES: PT REMAINS CALM AND COOPERATIVE THROUGHOUT THE NIGHT. PT SLEPT FROM 2100 TILL 0700AM WITH A TOTAL OF 10HRS OF SLEEP. NO APPARENT DISTRESS NOTED. PT DENIES ANY PLAN OF HURTING ONESELF. REMAINS PARANOID AND DOESNT TRUST ROOM MATE. VS REMAINS STABLE, NEEDS ATTENDED. SAFETY PRECAUTION FOR FALL REMAINS ENGAGED, CALL LIGHT IN REACH, WILL ENDORSE TO DAY RN FOR FERCHO.
[2016-09-15 08:00] VITALS: BP 130/86
[2016-09-15] MEDS: INVEST MED MK-8189 MISC 3 CAP EA PO SCH (08:35)
[2016-09-15] MEDS: INVEST MED MK-8189 MISC 3 TAB EA PO SCH (08:35)
--- NOTE | 2016-09-15 09:30 | NUR ---
MS RN NOTES ADMINISTERED DUE MEDS.
[2016-09-15] MEDS: ATENOLOL 25 MG PO SCH (09:44)
[2016-09-15 16:00] VITALS: BP 128/84
[2016-09-15 18:00] VITALS: BP 128/84
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
[2016-09-15 20:00] VITALS: BP 136/90
--- NOTE | 2016-09-15 20:15 | NUR ---
MS RN NOTES WENT DOWN TO SMOKE WITH PETER FUNK.
--- NOTE | 2016-09-15 22:30 | NUR ---
MS RN NOTES WENT DOWN TO SMOKE AGAIN WITH PETER FUNK
--- NOTE | 2016-09-16 07:25 | NUR ---
RN NOTE: RECEIVED PATIENT WHILE AWAKE AND ALERT. PATIENT WALKING THROUGH HALLWAYS AT THIS TIME, REQUESTING TO GO SMOKE. PATIENT INFORMED SHE WILL BE ACCOMMODATED ONCE ALL BREAKFAST TRAYS ARE PASSED OUT. PATIENT AGREEABLE, BUT RESTLESS SHE PACES IN HALLWAYS. ALL OTHER NEEDS ATTENDED TO, SAFETY MEASURES IN PLACE, WILL CONTINUE TO MONITOR BEHAVIOR.
--- NOTE | 2016-09-16 07:33 | NUR ---
MS RN NOTES NO SIGNIFICANT CHANGE IN BEHAVIOR NOTED.SLEPT 5 HOURS AT NOC.STABLE TO CONTINUE WITH CLINICAL STUDY PER DR ERNST.ENDORSED TO EFFIE CUMMINS FOR FERCHO.
[2016-09-16 08:00] VITALS: BP 120/76
--- NOTE | 2016-09-16 08:10 | NUR ---
MS RN NOTE: PATIENT WENT DOWNSTAIRS FOR A CIGARETTE, ATTENDED TO WITH WOODS RIDER, NO COMPLICATIONS NOTED, WILL CONTINUE TO MONITOR.
[2016-09-16 08:35] VITALS: BP 120/76
[2016-09-16] MEDS: INVEST MED MK-8189 MISC 3 CAP EA PO SCH (08:40)
[2016-09-16] MEDS: INVEST MED MK-8189 MISC 3 TAB EA PO SCH (08:40)
[2016-09-16] MEDS: ATENOLOL 25 MG PO SCH (08:41)
--- NOTE | 2016-09-16 12:00 | NUR ---
PATIENT ATE ALL OF MEAL.
--- NOTE | 2016-09-16 13:00 | NUR ---
REQUESTING SNACK, VANILLA ICE CREAM GIVEN, WILL CONTINUE TO MONITOR.
--- NOTE | 2016-09-16 13:10 | NUR ---
PATIENT TAKEN DOWNSTAIRS FOR A CIGARETTE. WILL CONTINUE TO MONITOR.
[2016-09-16 16:00] VITALS: BP 103/76
--- NOTE | 2016-09-16 16:00 | NUR ---
PATIENT ASSISTED DOWNSTAIRS FOR CIGARETTE. PATIENT REMAINS CALM. WILL CONTINUE TO MONITOR.
--- NOTE | 2016-09-16 17:45 | NUR ---
MS RN NOTE: RECEIVED VERBAL ORDER FROM DR. ERNST TO CHANGE ALL STANDING ORDERS OF ATIVAN. ATIVAN 1MG Q6H PRN AGITATION IS CHANGED TO ATIVAN 1MG Q4H PRN AGITATION. ALSO, ATIVAN 1MG HS PRN INSOMNIA IS CHANGED TO ATIVAN 2MG HS PRN INSOMNIA. ORDERS WRITTEN AND FAXED TO PHARMACY. ALL CURRENT START AND STOP DATES TO STAY THE SAME FOR EACH ORDER.
[2016-09-16] MEDS ORDERED: LORAZEPAM 1 MG TABLET FOR AGITATION PO PRN (18:30)
[2016-09-16] MEDS ORDERED: LORAZEPAM 1 MG TABLET FOR INSOMNIA PO PRN ×2 (18:30→19:00)
--- NOTE | 2016-09-16 18:36 | NUR ---
MS RN NOTE: PATIENT RESTING IN BED, A/OX 3. VISITOR AT BEDSIDE. PATIENT BREATHING EVEN AND UNLABORED ON ROOM AIR. PATIENT REMAINS CALM AND COOPERATIVE. NO COMPLICATIONS NOTED, ALL NEEDS ATTENDED TO, SAFETY MEASURES IN PLACE, WILL ENDORSE TO PRINTED CIRCUIT BOARDS PINNER FOR FERCHO.
[2016-09-16 20:00] VITALS: BP 120/93
--- NOTE | 2016-09-16 20:45 | NUR ---
MS RN NOTE: PATIENT ANXIOUS AND REQUESTING FOR ATIVAN. ATIVAN 1MG ORAL GIVEN PER MD. INSTRUCTED PATIENT THAT SHE CAN NOT HAVE ANYMORE ATIVAN TONIGHT TILL TOMORROW AND THAT SHE IS UNABLE TO EAT AND DRINK AFTER 9PM PER STUDY GUIDELINES. WILL CONTINUE TO MONITOR.
--- NOTE | 2016-09-17 06:20 | NUR ---
MS RN NOTE: PATIENT RESTING IN BED, NO ACUTE DISTRESS NOTED. BREATHING EVEN AND UNLABORED, NO SOB NOTED. PATIENT CALM AND COOPERATIVE. PATIENT SLEPT 8 HOURS. BED LOCKED AND IN LOWEST POSITION, CALL LIGHT IN REACH. WILL ENDORSE TO DAY NURSE TO CONTINUE WITH PLAN OF CARE.
[2016-09-17 08:00] VITALS: BP 124/77
--- NOTE | 2016-09-17 08:00 | NUR ---
MS RN NOTE: PATIENT RESTING IN BED, NO ACUTE DISTRESS NOTED. BREATHING EVEN AND UNLABORED, NO SOB NOTED. PATIENT CALM AND COOPERATIVE. PATIENT SLEPT 8 HOURS. ON NPO DUE TO THE CLINICAL TRIAL LAB BLOOD DRAW.CLINICAL TRIAL STAFF,ANGELITA AT BEDSIDE INTERVIEWING THE PT.BED LOCKED AND IN LOWEST POSITION, CALL LIGHT IN REACH.
--- NOTE | 2016-09-17 08:05 | NUR ---
PT'S BOYFRIEND AT BEDSIDE
[2016-09-17] MEDS: INVEST MED MK-8189 MISC 3 CAP EA PO SCH (08:53)
[2016-09-17] MEDS: INVEST MED MK-8189 MISC 3 TAB EA PO SCH (08:53)
[2016-09-17] MEDS: ATENOLOL 25 MG PO SCH (10:41)
[2016-09-17] MEDS ORDERED: LORAZEPAM 1 MG TABLET FOR AGITATION PO PRN ×2 (14:00)
[2016-09-17] MEDS ORDERED: LORAZEPAM 1 MG TABLET FOR INSOMNIA PO PRN ×2 (14:00)
[2016-09-17 16:00] VITALS: BP 137/86
--- NOTE | 2016-09-17 19:01 | NUR ---
PT RESTING IN BED DENYING ANY PAIN OR DISTRESS.ATE 100%DINNER.CALL LIGHT PLACED WITHIN REACH.COMPLIANT WITH MEDS FOR CLINICAL TRIAL.
[2016-09-17 20:00] VITALS: BP 119/95
--- NOTE | 2016-09-18 07:30 | NUR ---
MS/RN Patient received Patient received from night. No needs or concerns at this time. Will continue to monitor and ensure safety.
[2016-09-18 08:00] VITALS: BP 117/72
[2016-09-18] MEDS: INVEST MED MK-8189 MISC 3 TAB EA PO SCH (08:51)
[2016-09-18] MEDS: INVEST MED MK-8189 MISC 3 CAP EA PO SCH (08:51)
[2016-09-18] MEDS: ATENOLOL 25 MG PO SCH (08:51)
--- NOTE | 2016-09-18 08:56 | NUR ---
MS/RN Medications Investigational medications administered (three pills/three capsules)as ordered
[2016-09-18 09:06] VITALS: BP 129/76
--- NOTE | 2016-09-18 13:17 | NUR ---
MS/RN Behavior Calm and cooperative throughout this morning, no behavior concerns.
[2016-09-18 16:00] VITALS: BP 122/84
--- NOTE | 2016-09-18 17:57 | NUR ---
MS/RN Behavior Patient continues to pace in hallways, stated that still having auditory hallucinations but remains cooperative with care. Asking to change rooms, stating that she wanted to be by herself. Explained that this was not possible at this time. Will continue to monitor and endorse to third shift lieutenant.
--- NOTE | 2016-09-18 19:30 | NUR ---
RN NOTES RECEIVED PT. SITTING ON HER BED, CALM, COOPERATIVE, CALL LIGHT WITHIN REACH, CONTINUE TO MONITOR
[2016-09-18 20:00] VITALS: BP 134/84
--- NOTE | 2016-09-19 06:25 | NUR ---
RN NOTES AWAKE, MORNING CARE RENDERED, CALM AND FOLLOW INSTRUCTIONS
--- NOTE | 2016-09-19 07:30 | NUR ---
MS/RN OPENING NOTE PT. IS AWAKE IN BED, A&OX4. NOT IN DISTRESS, BREATHING UNLABORED, AND EVEN. PT. IS IN STABLE CONDITION. PT. BED IS IN LOW POSITION, 2 SIDE RAILS UP, AND CALL LIGHT WITHIN REACH.
[2016-09-19 08:00] VITALS: BP 126/81
[2016-09-19] MEDS: INVEST MED MK-8189 MISC 3 CAP EA PO SCH (08:43)
[2016-09-19] MEDS: INVEST MED MK-8189 MISC 3 TAB EA PO SCH (08:43)
[2016-09-19] MEDS: ATENOLOL 25 MG PO SCH (08:43)
[2016-09-19 16:00] VITALS: BP 123/73
--- NOTE | 2016-09-19 19:30 | NUR ---
MS NURSE'S OPENING NOTES RECEIVED REPORT FROM MORNING NURSE. PATIENT IS RESTING IN BED. BED IS LOW POSITION AND IN LOCKED POSITION. CALL LIGHT WITHIN REACH AND NO SIGNS OF DISTRESS.
--- NOTE | 2016-09-19 19:32 | NUR ---
MS/RN CLOSING NOTE PT. SEEN BY DR. ERNST NO NEW ORDERS IN AGREEMENT THAT PT.NEEDS GOALS SETTING IN REGARDS TO SMOKING BREAKS. CALL LIGHT WITHIN REACH.
[2016-09-19 20:00] VITALS: BP 130/85
[2016-09-19 21:29] VITALS: BP 130/85
--- NOTE | 2016-09-20 06:52 | NUR ---
MS CLOSING NOTE PT IS RESTING IN BED, SIDE RAILS UP X2, BED IN LOCKED POSITION, CALL LIGHT WITHIN REACH. PT SHOWS NO SIGNS OF DISTRESS.
--- NOTE | 2016-09-20 07:07 | NUR ---
MS NURSE'S NOTE-SLEEPING HOURS PT SLEPT FROM 10PM TO 6Am= 8 HOURS.
--- NOTE | 2016-09-20 07:30 | NUR ---
MS/RN OPENING NOTE PT. IS AWAKE SITTING UP IN BED IN STABLE CONDITION. A&OX4, NOT IN DISTRESS, NO SOB, BREATHING EVENLY. BED IS IN LOW POSITION, 2 SIDE RAILS UP, CALL LIGHT WITHIN REACH. ALL NEEDS ATTENDED TO.
[2016-09-20 08:00] VITALS: BP 119/78
[2016-09-20] MEDS: ATENOLOL 25 MG PO SCH (08:34)
[2016-09-20] MEDS: INVEST MED MK-8189 MISC 3 CAP EA PO SCH (09:20)
[2016-09-20] MEDS: INVEST MED MK-8189 MISC 3 TAB EA PO SCH (09:21)
[2016-09-20 16:00] VITALS: BP_SYST 120; BP_DIAS 70; BP_DIAS 76
--- NOTE | 2016-09-20 19:18 | NUR ---
MS/RN CLOSING NOTE PT. SEEN BY DR. ERNST, NO NEW ORDERS. PT. IS NOT IN DISTRESS. CALL LIGHT WITHIN REACH.
--- NOTE | 2016-09-20 19:30 | NUR ---
MS RN NOTES ON BED SLEEPING,AROUSABLE TO VERBAL STIMULI.NO IV ACCESS.ON CLINICAL STUDY FOR PSYCHE MEDS.MED COMPLIANT,WILL CONTINUE TO MONITOR BEHAVIOR.CALL LIGHT IN REACH,NEEDS ANTICIPATED.
[2016-09-20 20:00] VITALS: BP 124/74
--- NOTE | 2016-09-20 20:45 | NUR ---
MS RN NOTES WENT DOWN TO SMOKE ACCOMPANIED BY WEB PRESS OPERATOR APPRENTICE IMMACULATE
--- NOTE | 2016-09-21 | NUR ---
MS RN NOTES IN ROOM,SLEEPING
--- NOTE | 2016-09-21 05:30 | NUR ---
MS RN NOTES AWAKE,OUT TO THE SHOWER ROOM FOR MORNING CARE.
--- NOTE | 2016-09-21 06:23 | NUR ---
MS RN NOTES WENT DOWN TO SMOKE ACCOMPANIED BY IMMACULATE.SLEPT ABOUT 9-10 AT NIGHT.NO AGITATION NOTED.CALL LIGHT IN REACH,NEEDS ATTENDED.WILL CONTINUE WITH CLINICAL STUDY.WILL ENDORSE TO DAY NURSE FOR FERCHO.
--- NOTE | 2016-09-21 07:10 | NUR ---
MS RN NOTES PATIENT IN BED, AWAKE. A/O X4. APPEARS COMFORTABLE, NO C/O PAIN AT THIS TIME. CALL LIGHT WITHIN REACH. PATIENT IS ON CLINICAL TRIAL STUDY UNDER DR. ERNST, WILL CONT TO MONITOR.
[2016-09-21 08:00] VITALS: BP 131/71
[2016-09-21] MEDS: ATENOLOL 25 MG PO SCH (08:18)
[2016-09-21] MEDS: INVEST MED MK-8189 MISC 3 CAP EA PO SCH (08:18)
[2016-09-21] MEDS: INVEST MED MK-8189 MISC 3 TAB EA PO SCH (08:18)
--- NOTE | 2016-09-21 10:01 | NUR ---
PATIENT APPEARS VERY ANXIOUS, STATED SHE WANTS TO GO HOME AND SHES CALLING THE CAB. CONTINUOUSLY WALKING AND AGITATED. GIVEN ATIVAN 1 MG PO PRN. CALLED SPOKE TO DR. ERNST, ORDERED TO GIVE ANOTHER ATIVAN 1MG PO PRN X1 NOW, NOTED AND ACKNOWLEDGED.
[2016-09-21] MEDS ORDERED: LORAZEPAM 1 MG TABLET PO ONE (10:30)
--- NOTE | 2016-09-21 10:30 | NUR ---
DR. ERNST SPOKE TO THE PATIENT, PER MD HE WILL COME TO VISIT THE PATIENT TODAY. GIVEN ANOTHER ATIVAN 1MG PO X1 PRN, WILL REASSESS. PLACE CALL LIGHT WITHIN REACH.
--- NOTE | 2016-09-21 13:00 | NUR ---
PATIENT IS SEEN BY DR. ERNST TODAY, MD SPOKE TO THE PATIENT. PER MD PATIENT PATIENT CAN GO HOME TODAY.
--- NOTE | 2016-09-21 13:20 | NUR ---
MS RN DISCHARGED PATIENT HAS BEEN CLEARED FOR DISCHARGE BY MD. PATIENT IS AMBULATORY, V/S REMAINS STABLE. NO C/O PAIN. BREATHING EVEN AND NON LABORED. SKIN INTACT. DISCHARGE INSTRUCTION GIVEN TO THE PATIENT, VERBALIZED UNDERSTANDING. PATIENT'S OWN MEDICATIONS GIVEN TO HER UPON DC. BELONGINGS REFUSED TO BE CHECKED, SEND TO THE PATIENT UPON DC. PATIENT LEFT HOSP IN STABLE CONDITION VIA [facility]. ACCOMPANY PATIENT TO THE [facility] LOBBY.
[2016-09-25] MEDS ORDERED: LORAZEPAM 1 MG TABLET FOR AGITATION PO PRN ×2 (14:00)
[2016-09-25] MEDS ORDERED: LORAZEPAM 1 MG TABLET FOR INSOMNIA PO PRN ×2 (14:00)
[2016-10-02] MEDS ORDERED: LORAZEPAM 1 MG TABLET FOR INSOMNIA PO PRN ×2 (14:00)
[2016-10-02] MEDS ORDERED: LORAZEPAM 1 MG TABLET FOR AGITATION PO PRN ×2 (14:00)
== END 2016-09-21 13:30 | disposition home or self-care (01) | DRG 951 ==
LOC: MEDSG2 14:06
PROVIDERS: ADMIT Psychiatry & Neurology Psychiatry; ATTEND Psychiatry & Neurology Psychiatry
DX: Z00.6 Encounter for examination for normal comparison and control in clinical research program (principal); F20.0 Paranoid schizophrenia; Z90.49 Acquired absence of other specified parts of digestive tract; F17.210 Nicotine dependence, cigarettes, uncomplicated; I10 Essential (primary) hypertension
CPT/HCPCS: 87081-TC; Z7610